=== PATIENT | female | born 1945 | race Caucasian/White ===

== ENCOUNTER → 2017-02-18 | Outpatient (CLI) | payer MEDICARE, OTHER ==
--- NOTE | 2017-02-19 12:17 | RADRPT ---
PROCEDURE: XR Knees. CLINICAL INDICATION: Bilateral knee pain. TECHNIQUE: Total of eight views. Weightbearing frontal, oblique, and lateral views of the both kn ees. Patellar views of both knees. COMPARISON: Left knee radiographs dated 02/16/2014. FINDINGS: There is no fracture or dislocation. The soft tissues are normal. There are degenerative changes with osteophytes arising from all 3 joint compartment margins bilater ally. There is bilateral medial joint compartment narrowing, subarticular sclerosis, and deformity with left worse than right. There is no lytic or blastic lesion. There is no radiopaque foreign body. IMPRESSION: 1. Severe degenerative changes of both knees with left worse than right. 2. The appearance of the left knee is slightly worse than 02/26/2014. RPTAT: QQ .Edil Cortes MD, MD Date Time Electronically viewed and signed by .Edil Cortes MD, MD on 02/19/2017 12:16 .R/
== END | disposition home or self-care (01) ==
LOC: HKI 14:01
PROVIDERS: ATTEND Orthopaedic Surgery
DX: M25.562 Pain in left knee (principal); M17.0 Bilateral primary osteoarthritis of knee
CPT/HCPCS: 73564; G0463

== ENCOUNTER → 2017-04-12 | Outpatient (CLI) | payer MEDICARE, OTHER ==
--- NOTE | 2017-04-12 12:40 | RADRPT ---
PROCEDURE: Limited x-ray of both lower extremities. CLINICAL INDICATION: Bilateral leg pain. TECHNIQUE: Single frontal view of both lower extremities was obtained from the hips to the calves. COMPARISON: 03/29/2014. FINDINGS: There are degenerative changes of the hips with osteophytes noted. There are moderate degenerative changes of both knees with joint compartment narrowing and osteophytes. IMPRESSION: 1. Mild degenerative changes of the hips. 2. Moderate degenerative changes of the knees. RPTAT: QQ .Edil Cortes MD, MD Date Time Electronically viewed and signed by .Edil Cortes MD, on 04/12/2017 12:39 .R/
== END | disposition home or self-care (01) ==
LOC: HKI 10:15
PROVIDERS: ATTEND Orthopaedic Surgery
DX: Z01.818 Encounter for other preprocedural examination (principal); M17.4 Other bilateral secondary osteoarthritis of knee; M16.0 Bilateral primary osteoarthritis of hip
CPT/HCPCS: 77073

== ENCOUNTER 2017-04-23 06:57 | Inpatient (IN) | payer MEDICARE, OTHER ==
[~2017-04-23] VITALS: Ht 166.4 cm; Wt 59.2 kg
[2017-04-23] VITALS (39 sets, daily range): BP systolic 103–154; BP diastolic 57–83; PULSE 66–76; RESP 11–29; Ht 166.4 cm; Wt 59.2 kg
[2017-04-23] MEDS ORDERED: CEFAZOLIN 2GM/50 ML (PMX) 50 ML X1 BEFORE INCISION IVPB ONE (07:00)
[2017-04-23] MEDS ORDERED: CEFAZOLIN 1 GM INJ ONE (07:00)
[2017-04-23] MEDS ORDERED: PAIN COCKTAIL-CEFUROXIME IRR ONE ×7 (07:00)
[2017-04-23] MEDS ORDERED: traMADOL 50 MG TAB X 1 DOSE PO ONE (07:00)
[2017-04-23] MEDS ORDERED: oxyCODONE (CR) 10 MG TAB [oxyCONTIN] X1 DOSE PO ONE (07:00)
[2017-04-23] MEDS ORDERED: PREGABALIN 300 MG PO X1 PO ONE (07:00)
[2017-04-23] MEDS ORDERED: CELECOXIB 400 MG PO X1 DOSE PO ONE (07:00)
[2017-04-23] MEDS ORDERED: TRANEXAMIC ACID in SOD CHLORIDE 0.9% 100 ML ON CALL TO OR IV ONE (07:00)
[2017-04-23] MEDS ORDERED: LACTATED RINGER'S 1,000 ML IV SCH ×2 (07:00→12:12)
[2017-04-23] MEDS ORDERED: TRANEXAMIC ACID in SOD CHLORIDE 0.9% 100 ML FOR INTRAOP IVPB ONE (07:00)
[2017-04-23] MEDS ORDERED: LIOT5TAB3 PO (07:50)
[2017-04-23] MEDS ORDERED: TRAZ50TA18 PO (07:51)
[2017-04-23] MEDS ORDERED: LEVO100T87 PO (07:51)
[2017-04-23] MEDS ORDERED: DULO60CA6 PO (07:52)
[2017-04-23] MEDS ORDERED: DOCU-144 PO (07:53)
[2017-04-23] MEDS ORDERED: POLY17PO6 PO (07:53)
[2017-04-23] MEDS ORDERED: CARV6.2579 PO (07:54)
[2017-04-23] MEDS ORDERED: ATOR10TA65 PO (07:54)
[2017-04-23] MEDS ORDERED: MULTI PO (07:55)
[2017-04-23] MEDS ORDERED: OXCA300T41 PO (07:55)
[2017-04-23] MEDS ORDERED: ASCO500C7 PO (07:55)
[2017-04-23] MEDS ORDERED: CITRACAL PO (07:56)
[2017-04-23] MEDS ORDERED: CHOL100062 PO (07:57)
[2017-04-23] MEDS ORDERED: BACITRACIN 50000 UNITS INJ ONE (08:20)
[2017-04-23] MEDS ORDERED: POLYMYXIN B 500000 UNIT INJ ONE (08:59)
[2017-04-23] MEDS ORDERED: SODIUM CL BACTERIOSTATIC 30 ML INJ ONE (08:59)
[2017-04-23] MEDS ORDERED: EXPAREL NOTE (BUPIVICAINE LIPOSOMAL) XX SCH (09:00)
[2017-04-23] MEDS ORDERED: BUPIVACAINE LIPOSOME/PF 266 MG/20 ML VIAL INFIL ONE (09:00)
--- NOTE | 2017-04-23 09:35 | HPN ---
Date/Time of Note Date/Time of Note DATE: 04/23/17 TIME: 09:34 Interval H&P Admission Note Pt. seen H&P reviewed: No system changes No changes from H&P on 04/09/17 by FLORES Larsen MD Apr 23, 2017 09:34
[2017-04-23] MEDS ORDERED: LIDOCAINE 2% (SDV) 5 ML INJ ONE (10:05)
[2017-04-23] MEDS ORDERED: PROPOFOL 100 ML ONE (10:05)
[2017-04-23] MEDS ORDERED: FENTAnyl 50 MCG/ML VIAL ONE (10:06)
[2017-04-23] MEDS ORDERED: MIDAZOLAM 1 MG/ML 2 ML INJ ONE (10:06)
[2017-04-23] MEDS ORDERED: DEXAMETHASONE 4 MG/ML 1 ML INJ ONE (10:49)
[2017-04-23] MEDS ORDERED: FAMOTIDINE 20 MG INJ ONE (10:49)
[2017-04-23] MEDS ORDERED: ONDANSETRON 4 MG INJ ONE (10:49)
[2017-04-23] MEDS: VANCOMYCIN 1 GM INJ ONE ×2 (10:50→10:52)
[2017-04-23] MEDS ORDERED: EPHEDrine SULFATE 50 MG/5 ML SYG ONE (12:00)
[2017-04-23] MEDS ORDERED: HYDROmorphONE (0.2 MG/ML) 10ML SYG IV PRN ×2 (12:00→12:30)
[2017-04-23] MEDS ORDERED: DIPHENHYDRAMINE 50 MG INJ IV PRN (12:00)
[2017-04-23] MEDS ORDERED: ONDANSETRON 4 MG INJ IV PRN ×2 (12:00→12:30)
[2017-04-23] MEDS ORDERED: FENTAnyl 50 MCG/ML VIAL IV PRN (12:00)
--- NOTE | 2017-04-23 12:23 | PN ---
Date/Time of Note Date/Time of Note DATE: 04/23/17 TIME: 12:20 Assessment/Plan Lines/Catheters IV Catheter Type (from Nrsg): Peripheral IV Assessment/Plan Assessment/Plan Stable in PACU, s/p left TKA -continue Ancef -pain meds as needed -ASA/SCDs -OOB with PT -check AM labs -monitor drain -d/c olivas in AM XR of the left knee is pending at this time Subjective 24 Hr Interval Summary Stable in PACU. Denies pain. Moving all extremities. Exam/Review of Systems Vital Signs Vitals Vital Signs Date Time Temp Pulse Resp B/P Pulse Ox O2 Delivery O2 Flow Rate FiO2 04/23/17 08:48 97.6 72 18 103/57 98 Room Air Exam Free Text/Dictation Hemovac: minimal Dressing dry Incision clean, dry, and intact without redness or drainage Thigh soft 5/5 Quadriceps, Tibialis Anterior, EHL, Gastroc, Soleus, Peroneals Normal sensation Palpable DT/PT, CR <2 sec No distal edema ANN-MARIE RIVAS PA-C Apr 23, 2017 12:23
--- NOTE | 2017-04-23 12:24 | OPR ---
Date/Time of Note Date/Time of Note DATE: 04/23/17 TIME: 12:19 Operative Report Free Text/Dictation Dictation #[id number] Preoperative Diagnosis Left Knee OA Postoperative Diagnosis Same Operation/Procedure Performed Left TKA Surgeon: FLORES LORENZ MD assistant technician: ANN-MARIE RIVAS PA-C Anesthesia: general, spinal Estimated Blood Loss: 50 - 100 ml's Specimens Bone and soft tissue Grafts/Implants Depuy Attune TKA Complications: None FLORES LORENZ MD Apr 23, 2017 12:24
[2017-04-23] MEDS ORDERED: BISACODYL 10 MG SUPP PR PRN (12:30)
[2017-04-23] MEDS ORDERED: MAGNESIUM HYDROXIDE 30ML CUP PO PRN (12:30)
[2017-04-23] MEDS ORDERED: NA PHOSPHATE/BIPHOS 133 ML ENEMA PR PRN (12:30)
[2017-04-23] MEDS ORDERED: NACL 0.9% 3 ML SYG IV SCH (12:30)
[2017-04-23] MEDS ORDERED: DIPHENHYDRAMINE 25 MG CAP PO PRN (12:30)
[2017-04-23] MEDS ORDERED: ASPIRIN (EC) 325 MG TAB PO ONE (12:30)
[2017-04-23 13:21] LABS: HEMATOCRIT 39.4 % (37.0-47.0); HEMOGLOBIN 13.1 g/dl (12.0-16.0)
[2017-04-23] MEDS: CEFAZOLIN 2 GM/50 ML (PMX) 50 ML IVPB SCH ×2 (13:29→20:51)
[2017-04-23 13:40] LABS: CALCIUM 8.3 mg/dl (8.4-10.2); CREATININE 0.7 mg/dl (0.44-1.00)
--- NOTE | 2017-04-23 13:56 | RADRPT ---
PROCEDURE: XR Knee. CLINICAL INDICATION: Left knee pain TECHNIQUE: 2 views of the left knee are available for review. COMPARISON: Radiographs of the left knee dated February 18, 2017 FINDINGS: There is a total left knee arthroplasty in anatomic alignment. There is no acute fracture. There is anterior soft tissue swelling and gas with anterior vonnie. There is an anterior drain. IMPRESSION: Recent total left knee arthroplasty as above. RPTAT: UU .Michel Wellington MD, MD Date Time Electronically viewed and signed by .Michel Wellington MD, MD on 04/23/2017 13:56 .K/
[2017-04-23] MEDS ORDERED: TRANEXAMIC ACID 590 MG in SOD CHLORIDE 0.9% 100 ML IVPB ONE ×2 (15:30→18:30)
[2017-04-23] MEDS: HYDROCODONE/APAP (7.5/325) TAB PO PRN ×2 (16:57→23:50)
[2017-04-23] MEDS: PANTOPRAZOLE (EC) 40 MG TAB PO SCH (17:52)
[2017-04-23] MEDS: traMADol 50 MG TAB PO SCH ×2 (17:52→23:22)
[2017-04-23] MEDS: SOD CHLORIDE 0.9% 1,000 ML IV SCH (17:53)
[2017-04-23] MEDS: HYDROmorphONE 1 MG/ML SYG IV PRN (19:01)
[2017-04-23] MEDS: PREGABALIN 50 MG CAP PO SCH (20:51)
[2017-04-23] MEDS: ATORVASTATIN 10 MG TAB PO SCH (20:51)
[2017-04-23] MEDS: DOCUSATE SODIUM 100 MG CAP PO SCH (20:51)
[2017-04-23] MEDS: OXCARBAZEPINE 300 MG TAB PO SCH (21:31)
[2017-04-24] MEDS: HYDROmorphONE 1 MG/ML SYG IV PRN ×4 (01:34→16:25)
[2017-04-24] MEDS: SOD CHLORIDE 0.9% 1,000 ML IV SCH ×2 (02:03→11:01)
[2017-04-24] MEDS: HYDROCODONE/APAP (7.5/325) TAB PO PRN ×4 (04:07→19:36)
[2017-04-24] MEDS: CEFAZOLIN 2 GM/50 ML (PMX) 50 ML IVPB SCH (04:10)
[2017-04-24 05:36] LABS: HEMATOCRIT 32.3 % (37.0-47.0); HEMOGLOBIN 10.6 g/dl (12.0-16.0)
[2017-04-24] MEDS: PANTOPRAZOLE (EC) 40 MG TAB PO SCH ×2 (06:16→19:21)
[2017-04-24] MEDS: traMADol 50 MG TAB PO SCH ×3 (06:17→19:21)
[2017-04-24 06:26] LABS: CALCIUM 7.5 mg/dl (8.4-10.2); CREATININE 0.71 mg/dl (0.44-1.00); POTASSIUM 3.9 mmol/L (3.5-5.1)
[2017-04-24] MEDS: LEVOTHYROXINE 100 MCG TAB PO SCH (06:39)
[2017-04-24 07:00] VITALS: BP 93/63; RESP 18
[2017-04-24 07:56] LABS: ADD UMIC YES; UR ASCORBIC ACID NEGATIVE (NEGATIVE); UR BILIRUBIN (Dip) NEGATIVE (NEGATIVE); UR BLOOD (Dip) 1+ mg/dL (NEGATIVE); UR CLARITY CLEAR (CLEAR); UR COLOR YELLOW (YELLOW); UR GLUCOSE (Dip) NEGATIVE (NEGATIVE); UR KETONES (Dip) NEGATIVE (NEGATIVE); UR LEUKOCYTE ESTERASE (Dip) NEGATIVE Leu/ul (NEGATIVE); UR MUCUS FEW /HPF (NONE SEEN); UR NITRITE (Dip) NEGATIVE (NEGATIVE); UR RBC 35 /HPF (0-5); UR SPECIFIC GRAVITY (Dip) 1.033 (1.003-1.030); UR TOTAL PROTEIN (Dip) 1+ mg/dl (NEGATIVE); UR UROBILINOGEN (Dip) NEGATIVE (NEGATIVE)
--- NOTE | 2017-04-24 08:42 | CONS ---
Date/Time of Note Date/Time of Note DATE: 04/24/17 TIME: 08:40 Assessment/Plan Assessment/Plan Additional Assessment/Plan 1. Post op left knee replacement 2. Hyponatremia likley sec to siadh with trileptal contrib, fluid restriction ordered and Monika 3. Depression, meds resumed Consultation Date/Type/Reason Admit Date/Time Apr 23, 2017 at 06:57 Initial Consult Date Detailed Summary Respiratory: No shortness of breath Cardiovascular: No chest pain, No orthopenea Gastrointestinal: no complaints Genitourinary: no complaints Musculoskeletal: bone/joint pain (mild left knee pain) Exam/Review of Systems Vital Signs Vitals Vital Signs Date Time Temp Pulse Resp B/P Pulse Ox O2 Delivery O2 Flow Rate FiO2 04/24/17 07:00 97.9 80 18 93/63 96 04/23/17 20:00 Nasal Cannula 2.0 Intake and Output 04/23/17 04/23/17 04/24/17 15:00 23:00 07:00 Intake Total 1800 ml 741.8 ml 1580 ml Output Total 400 ml 620 ml 700 ml Balance 1400 ml 121.8 ml 880 ml Exam Neck: No jvd Respiratory: clear to auscultation Cardiovascular: regular rate and rhythm Gastrointestinal: soft Extremities: No edema, No tenderness Results Result Diagram: 04/24/17 0500 04/24/17 0500 Results 24 hrs Laboratory Tests Test 04/23/17 13:02 04/23/17 13:06 04/23/17 18:05 04/24/17 05:00 Sodium Level 128 L 123 L Potassium Level 4.0 3.9 Chloride Level 98 92 L Carbon Dioxide Level 30 30 Anion Gap 4 L 5 L Blood Urea Nitrogen 20 16 Creatinine 0.70 0.71 Glucose Level 107 94 Calcium Level 8.3 L 7.5 L Hemoglobin 13.1 10.6 L Hematocrit 39.4 32.3 L Urine Random Sodium > 198 H Test 04/24/17 06:30 Urine Color YELLOW Urine Clarity CLEAR Urine pH 5.0 Urine Specific Nunda 1.033 H Urine Ketones NEGATIVE Urine Nitrite NEGATIVE Urine Bilirubin NEGATIVE Urine Urobilinogen NEGATIVE Urine Leukocyte Esterase NEGATIVE Urine Microscopic RBC 35 H Urine Microscopic WBC 3 Urine Mucus FEW A Urine Hemoglobin 1+ H Urine Glucose NEGATIVE Urine Total Protein 1+ H Medications Medications Current Medications Miscellaneous Information 1 ea NOTE XX ; Start 04/23/17 at 09:00; Stop 04/27/17 at 08:59 Ascorbic Acid (Vitamin C) 500 mg DAILY PO ; Start 04/24/17 at 09:00 Atorvastatin Calcium (Lipitor) 10 mg QHS PO Last administered on 04/23/17 20: 51; Admin Dose 10 MG; Start 04/23/17 at 21:00 Carvedilol (Coreg) 6.25 mg BID PO Last administered on 04/23/17 20:53; Admin Dose 6.25 MG; Start 04/23/17 at 21:00 Duloxetine HCl (Cymbalta) 60 mg DAILY PO ; Start 04/24/17 at 09:00 Liothyronine Sodium (Cytomel) 5 mcg DAILY PO ; Start 04/24/17 at 09:00 Oxcarbazepine (Trileptal) 900 mg BID PO Last administered on 04/23/17 21:31; Admin Dose 900 MG; Start 04/23/17 at 21:00 Tramadol HCl (Ultram) 50 mg Q6 PO Last administered on 04/24/17 06:17; Admin Dose 50 MG; Start 04/23/17 at 18:00; Stop 04/26/17 at 17:59 Hydromorphone HCl (Dilaudid) 1 mg Q3H PRN IV PAIN LEVEL 8-10 Last administered on 04/24/17 06:39; Admin Dose 1 MG; Start 04/23/17 at 12:30 Ondansetron HCl (Zofran Inj) 4 mg Q6H PRN IV NAUSEA AND/OR VOMITING; Start 08/30 at 12:30 Bisacodyl (Dulcolax Supp) 10 mg Q12H PRN [place] CONSTIPATION; Start 04/23/17 at 12: 30 Magnesium Hydroxide (Milk Of Mag) 30 ml BID PRN PO CONSTIPATION; Start at 12:30 Sodium Biphosphate/ Sodium Phosphate (Fleet Enema) 133 ml DAILY PRN [place] CONSTIPATION; Start 04/23/17 at 12:30 Docusate Sodium (Colace) 100 mg BID PO Last administered on 04/23/17 20:51; Admin Dose 100 MG; Start 04/23/17 at 21:00 Diphenhydramine HCl (Benadryl) 25 mg Q6H PRN PO PRURITUS; Start 04/23/17 at 12: 30 Acetaminophen/ Hydrocodone Bitart ([place] (7.5-325)) 1 tab Q4H PRN PO PAIN LEVEL 1-3 Last administered on 04/23/17 16:57; Admin Dose 1 TAB; Start at 12:30 Acetaminophen/ Hydrocodone Bitart ([place] (7.5-325)) 2 tab Q4H PRN PO PAIN LEVEL 4-7 Last administered on 04/24/17 04:07; Admin Dose 2 TAB; Start at 12:30 Aspirin (Ecotrin) 325 mg BID PO ; Start 04/24/17 at 09:00 Pantoprazole (Protonix Tab) 40 mg BID@06,18 PO Last administered on 04/24/17 06:16; Admin Dose 40 MG; Start 04/23/17 at 18:00 Pregabalin 50 mg 50 mg BID PO Last administered on 04/23/17 20:51; Admin Dose 50 MG; Start 04/23/17 at 21:00 Sodium Chloride (NS) 1,000 ml @ 125 mls/hr Q8H IV Last administered on 02:03; Admin Dose 125 MLS/HR; Start 04/23/17 at 17:30 VAHE KEYES MD Apr 24, 2017 08:42
[2017-04-24] MEDS: PREGABALIN 50 MG CAP PO SCH ×2 (09:00→20:47)
--- NOTE | 2017-04-24 09:03 | PN ---
Date/Time of Note Date/Time of Note DATE: 04/24/17 TIME: 09:01 Assessment/Plan Lines/Catheters IV Catheter Type (from Nrsg): Peripheral IV Cook in Place (from Nrsg): Yes Assessment/Plan Assessment/Plan Stable POD #1, s/p left TKA -d/c Ancef -pain meds as needed -ASA/SCDs -OOB with PT -drain removed -check AM labs -d/c planning. Will plan to go home upon discharge Subjective 24 Hr Interval Summary No acute overnight events. Having mild knee pain and discomfort to her throat. VSS, afebrile. Did not start PT yesterday. Will plan to go home upon discharge. Exam/Review of Systems Vital Signs Vitals Vital Signs Date Time Temp Pulse Resp B/P Pulse Ox O2 Delivery O2 Flow Rate FiO2 04/24/17 07:00 97.9 80 18 93/63 96 04/23/17 20:00 Nasal Cannula 2.0 Intake and Output 04/23/17 04/23/17 04/24/17 15:00 23:00 07:00 Intake Total 1800 ml 741.8 ml 1580 ml Output Total 400 ml 620 ml 700 ml Balance 1400 ml 121.8 ml 880 ml Exam Free Text/Dictation Hemovac: 280cc Dressing dry Incision clean, dry, and intact without redness or drainage Thigh soft 5/5 Quadriceps, Tibialis Anterior, EHL, Gastroc, Soleus, Peroneals Normal sensation Palpable DT/PT, CR <2 sec No distal edema Results Result Diagram: 04/24/17 0500 04/24/17 0500 ANN-MARIE RIVAS PA-C Apr 24, 2017 09:02
[2017-04-24] MEDS: DULOXETINE 30 MG CAP DR PO SCH (09:21)
[2017-04-24] MEDS: OXCARBAZEPINE 300 MG TAB PO SCH ×2 (09:22→20:46)
[2017-04-24] MEDS: DOCUSATE SODIUM 100 MG CAP PO SCH ×2 (09:22→20:48)
[2017-04-24] MEDS: ASPIRIN (EC) 325 MG TAB PO SCH ×2 (09:23→20:47)
[2017-04-24] MEDS: ASCORBIC ACID 500 MG TAB PO SCH (09:23)
[2017-04-24] MEDS: LIOTHYRONINE 5 MCG TAB PO SCH (09:28)
[2017-04-24] MEDS ORDERED: CEPASTAT LOZENGE MT PRN (09:30)
[2017-04-24] MEDS: NACL 3% 500 ML IV SCH (16:25)
[2017-04-24 20:00] VITALS: BP 123/58; RESP 18
[2017-04-24] MEDS: ATORVASTATIN 10 MG TAB PO SCH (20:47)
[2017-04-24] MEDS: ZOLPIDEM 5 MG TAB PO PRN (22:55)
[2017-04-25] VITALS (10 sets, daily range): BP systolic 103–123; BP diastolic 53–75; PULSE 78–90; RESP 18–21
[2017-04-25] MEDS: HYDROCODONE/APAP (7.5/325) TAB PO PRN ×3 (02:34→20:24)
[2017-04-25] MEDS: PANTOPRAZOLE (EC) 40 MG TAB PO SCH ×2 (05:47→10:26)
[2017-04-25] MEDS: traMADol 50 MG TAB PO SCH ×4 (05:48→18:00)
[2017-04-25] MEDS: LEVOTHYROXINE 100 MCG TAB PO SCH (05:48)
[2017-04-25 07:45] LABS: CREATININE 0.67 mg/dl (0.44-1.00); POTASSIUM 4.7 mmol/L (3.5-5.1)
--- NOTE | 2017-04-25 07:47 | CONS ---
Date/Time of Note Date/Time of Note DATE: 04/25/17 TIME: 07:44 Assessment/Plan Assessment/Plan Additional Assessment/Plan 1. Doing well post op left knee replacement 2. Hyponatremia sec to siadh, now receivng 3% saline, trileptal and cymbalta is contributing. Consultation Date/Type/Reason Admit Date/Time Apr 23, 2017 at 06:57 Detailed Summary Respiratory: pain, No cough, No shortness of breath Cardiovascular: No chest pain Gastrointestinal: no complaints Genitourinary: no complaints Musculoskeletal: bone/joint pain (mild left knee pain) Exam/Review of Systems Vital Signs Vitals Vital Signs Date Time Temp Pulse Resp B/P Pulse Ox O2 Delivery O2 Flow Rate FiO2 04/25/17 07:22 98.0 82 18 123/58 95 04/25/17 02:45 Nasal Cannula 2.0 Intake and Output 04/24/17 04/24/17 04/25/17 15:00 23:00 07:00 Intake Total 740 ml 200 ml Output Total 600 ml Balance 140 ml 200 ml Exam Neck: No jvd Respiratory: clear to auscultation Cardiovascular: regular rate and rhythm Gastrointestinal: soft Extremities: edema (and no calf tend) Results Result Diagram: 04/25/17 0639 04/24/17 2228 Results 24 hrs Laboratory Tests Test 04/24/17 12:45 04/24/17 22:28 04/25/17 06:39 Sodium Level 120 L 119 *L Hemoglobin 11.0 L Hematocrit 34.0 L Medications Medications Current Medications Miscellaneous Information 1 ea NOTE XX ; Start 04/23/17 at 09:00; Stop 04/27/17 at 08:59 Ascorbic Acid (Vitamin C) 500 mg DAILY PO Last administered on 04/24/17 09:23 ; Admin Dose 500 MG; Start 04/24/17 at 09:00 Atorvastatin Calcium (Lipitor) 10 mg QHS PO Last administered on 04/24/17 20: 47; Admin Dose 10 MG; Start 04/23/17 at 21:00 Carvedilol (Coreg) 6.25 mg BID PO Last administered on 04/24/17 20:48; Admin Dose 6.25 MG; Start 04/23/17 at 21:00 Duloxetine HCl (Cymbalta) 60 mg DAILY PO Last administered on 04/24/17 09:21; Admin Dose 60 MG; Start 04/24/17 at 09:00 Liothyronine Sodium (Cytomel) 5 mcg DAILY PO Last administered on 04/24/17 09: 28; Admin Dose 5 MCG; Start 04/24/17 at 09:00 Oxcarbazepine (Trileptal) 900 mg BID PO Last administered on 04/24/17 20:46; Admin Dose 900 MG; Start 04/23/17 at 21:00 Tramadol HCl (Ultram) 50 mg Q6 PO Last administered on 04/25/17 05:48; Admin Dose 50 MG; Start 04/23/17 at 18:00; Stop 04/26/17 at 17:59 Hydromorphone HCl (Dilaudid) 1 mg Q3H PRN IV PAIN LEVEL 8-10 Last administered on 04/24/17 16:25; Admin Dose 1 MG; Start 04/23/17 at 12:30 Ondansetron HCl (Zofran Inj) 4 mg Q6H PRN IV NAUSEA AND/OR VOMITING; Start 08/30 at 12:30 Bisacodyl (Dulcolax Supp) 10 mg Q12H PRN [place] CONSTIPATION; Start 04/23/17 at 12: 30 Magnesium Hydroxide (Milk Of Mag) 30 ml BID PRN PO CONSTIPATION; Start at 12:30 Sodium Biphosphate/ Sodium Phosphate (Fleet Enema) 133 ml DAILY PRN [place] CONSTIPATION; Start 04/23/17 at 12:30 Docusate Sodium (Colace) 100 mg BID PO Last administered on 04/24/17 20:48; Admin Dose 100 MG; Start 04/23/17 at 21:00 Diphenhydramine HCl (Benadryl) 25 mg Q6H PRN PO PRURITUS; Start 04/23/17 at 12: 30 Acetaminophen/ Hydrocodone Bitart ([place] (7.5-325)) 1 tab Q4H PRN PO PAIN LEVEL 1-3 Last administered on 04/25/17 02:34; Admin Dose 1 TAB; Start at 12:30 Acetaminophen/ Hydrocodone Bitart ([place] (7.5-325)) 2 tab Q4H PRN PO PAIN LEVEL 4-7 Last administered on 04/24/17 14:15; Admin Dose 2 TAB; Start at 12:30 Aspirin (Ecotrin) 325 mg BID PO Last administered on 04/24/17 20:47; Admin Dose 325 MG; Start 04/24/17 at 09:00 Pantoprazole (Protonix Tab) 40 mg BID@06,18 PO Last administered on 04/25/17 05:47; Admin Dose 40 MG; Start 04/23/17 at 18:00 Pregabalin (Lyrica) 50 mg BID PO Last administered on 04/24/17 20:47; Admin Dose 50 MG; Start 04/23/17 at 21:00 Phenol 1 lozenge 1 lozenge Q1H PRN [place] SORE THROAT Last administered on 09:28; Admin Dose 1 LOZENGE; Start 04/24/17 at 09:30 Sodium Chloride (Sodium Chloride Iv 3%) 500 ml @ 30 mls/hr [id number] IV Last administered on 04/24/17 16:25; Admin Dose 20 MLS/HR; Start 04/24/17 at 16:00 Zolpidem Tartrate (Ambien) 5 mg HS PRN PO INSOMNIA Last administered on 22:55; Admin Dose 5 MG; Start 04/24/17 at 23:00 VAHE KEYES MD Apr 25, 2017 07:47
[2017-04-25 07:50] LABS: MAGNESIUM 1.6 mg/dl (1.7-2.5)
[2017-04-25] MEDS: DULOXETINE 30 MG CAP DR PO SCH (10:25)
[2017-04-25] MEDS: OXCARBAZEPINE 300 MG TAB PO SCH ×2 (10:26→20:20)
[2017-04-25] MEDS: PREGABALIN 50 MG CAP PO SCH ×2 (10:26→20:20)
[2017-04-25] MEDS: DOCUSATE SODIUM 100 MG CAP PO SCH ×2 (10:26→20:21)
[2017-04-25] MEDS: ASPIRIN (EC) 325 MG TAB PO SCH ×2 (10:26→20:20)
[2017-04-25] MEDS: LIOTHYRONINE 5 MCG TAB PO SCH (10:26)
[2017-04-25] MEDS: ASCORBIC ACID 500 MG TAB PO SCH (10:27)
[2017-04-25] MEDS ORDERED: MAGNESIUM SULFATE 3 GM in SOD CHLORIDE 0.9% 100 ML IVPB ONE (12:30)
--- NOTE | 2017-04-25 13:19 | RADRPT ---
PROCEDURE: Left knee x-ray CLINICAL INDICATION: "Knee pain, fell." TECHNIQUE: AP, lateral and oblique views of the knee were obtained. COMPARISON: Left knees 04/22/2017. FINDINGS: There are skin vonnie over the ventral surface of the left knee with subcutaneous emphysema ventral to the patellar ligament. The femoral and tibial and patellar components of the left knee prosthes is are anatomically aligned. A trace effusion is not excluded. IMPRESSION: 1. Postsurgical changes from recent total left knee arthroplasty. 2. No acute bony fracture is identified. RPTAT:AAJJ Physician Xochitl Date Time Electronically viewed and signed by Physician Xochitl on 04/25/2017 13:18 NICOLE/
--- NOTE | 2017-04-25 15:37 | PN ---
Date/Time of Note Date/Time of Note DATE: 04/25/17 TIME: 15:35 Assessment/Plan Lines/Catheters IV Catheter Type (from Nrsg): Peripheral IV Cook in Place (from Nrsg): No Assessment/Plan Assessment/Plan POD #2, s/p left TKA -pain meds as needed -ASA/SCDs -OOB with PT -sodium improved today. Will continue to be monitored by medicine team -check AM labs -dressing changed Subjective 24 Hr Interval Summary Transferred to due to hyponatremia last night. Denies CP or SOB. Also had episode of confusion today and had a fall in her room. XR of the left knee was ordered and showed no fracture or dislocations. Pain controlled with pain medication. VSS, afebrile. Exam/Review of Systems Vital Signs Vitals Vital Signs Date Time Temp Pulse Resp B/P Pulse Ox O2 Delivery O2 Flow Rate FiO2 04/25/17 12:14 98.2 78 18 117/75 92 04/25/17 02:45 Nasal Cannula 2.0 Intake and Output 04/24/17 04/24/17 04/25/17 15:00 23:00 07:00 Intake Total 740 ml 200 ml Output Total 600 ml Balance 140 ml 200 ml Exam Free Text/Dictation Dressing dry Incision clean, dry, and intact without redness or drainage Thigh soft 5/5 Quadriceps, Tibialis Anterior, EHL, Gastroc, Soleus, Peroneals Normal sensation Palpable DT/PT, CR <2 sec No distal edema Results Result Diagram: 04/25/17 0639 04/25/17 0639 ANN-MARIE RIVAS PA-C Apr 25, 2017 15:37
[2017-04-25] MEDS: NACL 3% 500 ML IV SCH (15:44)
--- NOTE | 2017-04-25 17:49 | RADRPT ---
PROCEDURE: CT Head without. CLINICAL INDICATION: Headaches status post fall TECHNIQUE: The study was performed utilizing a multi-slice, multidetector CT scanner. Direct spira l 1 mm axial sections were obtained through the head without the use of intravenous contrast materia l. 1 or more of the following dose reduction techniques were utilized: Automated exposure control, adjustment of the mA and/or kV according to patient's size, iterative reconstruction technique. Co tee and sagittal reformations were obtained. The images were reviewed on a PACS workstation. RADIATION DOSE: CTDIvol: 45.0 mGyDLP: 720.2 mGy-cm COMPARISON: No prior studies are available for comparison. FINDINGS: There is no intracranial hemorrhage, extra-axial fluid collection, mass lesion, midline shift or hyd rocephalus. There is mild prominence of the cerebral sulci, lateral and third ventricles. There is mild periventricular and subcortical white matter hypodensity. There is mild arteriosclerotic calc ification of the parasellar internal carotid arteries. The mata-white matter differentiation is pre served. The basal cisterns are patent. The midline structures are intact. There is pneumatization of the bilateral petrous apices without evidence of inflammatory changes, normal variant. The orbit s, calvarium and extracranial soft tissues are normal in appearance. The visualized paranasal sinuse s, mastoid air cells and middle ear cavities are normally aerated. IMPRESSION: 1. No acute intracranial abnormality. No intracranial hemorrhage, extra-axial fluid collection, ma ss lesion or hydrocephalous. 2. Mild peripheral and central cerebral volume loss. 3. Mild periventricular and subcortical white matter hypodensity, likely related to chronic microan giopathic changes. RPTAT: HGAS .Dariusz Donohue MD, MD Date Time Electronically viewed and signed by .Dariusz Donohue MD, on 04/25/2017 17:48 .S/
[2017-04-25] MEDS: ATORVASTATIN 10 MG TAB PO SCH (20:20)
[2017-04-25] MEDS ORDERED: FUROSEMIDE 20 MG INJ IV ONE (23:00)
[2017-04-26] VITALS (9 sets, daily range): BP systolic 114–131; BP diastolic 56–82; PULSE 89–96; RESP 17–19
[2017-04-26] MEDS: traMADol 50 MG TAB PO SCH ×3 (05:43→12:00)
[2017-04-26] MEDS: PANTOPRAZOLE (EC) 40 MG TAB PO SCH ×2 (05:43→18:11)
[2017-04-26 07:03] LABS: ADD SCAN DIFF NO
[2017-04-26 07:18] LABS: BASOPHILS % 0.3 % (0.0-2.0); EOSINOPHILS # 0.1 10^3/ul (0.0-0.5); EOSINOPHILS % 0.9 % (0.0-7.0); HEMATOCRIT 29.8 % (37.0-47.0); HEMOGLOBIN 9.9 g/dl (12.0-16.0); LYMPHOCYTES # 0.8 10^3/ul (0.8-2.9); LYMPHOCYTES % 9.1 % (15.0-51.0); MEAN CORPUSCULAR HEMOGLOBIN 30.7 pg (29.0-33.0); MEAN CORPUSCULAR HGB CONC 33.2 g/dl (32.0-37.0); MEAN CORPUSCULAR VOLUME 92.5 fl (82.0-101.0); MEAN PLATELET VOLUME 9.5 fl (7.4-10.4); MONOCYTES % 11.2 % (0.0-11.0); NEUTROPHIL # 6.7 10^3/ul (1.6-7.5); NEUTROPHILS % 77.9 % (39.0-77.0); PLATELET COUNT 258 10^3/UL (140-415); RED BLOOD COUNT 3.22 10^6/ul (4.20-5.40); WHITE BLOOD COUNT 8.7 10^3/ul (4.8-10.8)
[2017-04-26 07:44] LABS: CALCIUM 7.6 mg/dl (8.4-10.2); CREATININE 0.67 mg/dl (0.44-1.00); MAGNESIUM 1.8 mg/dl (1.7-2.5); PHOSPHORUS 2.4 mg/dl (2.5-4.9); POTASSIUM 3.5 mmol/L (3.5-5.1)
--- NOTE | 2017-04-26 07:48 | PDOCDIS ---
Discharge Instructions DIAGNOSIS Discharge Diagnosis s/p left TKA CONDITION Patient Condition: Good HOME CARE INSTRUCTIONS: Diet Instructions: Regular ACTIVITY: Activity Restrictions: Slowly Increase Activity Rest between Activity Avoid heavy lifting Do not operate Machinery Do not operate Power Tool Avoid Heavy Housework Keep Limb Elevated Weight Bearing Bathing Restrictions: Shower FOLLOW UP/APPOINTMENTS Follow-up Plan follow up in the office on 05/03/17 REFERRALS Other Referrals S/P TKA Physical Therapy: Three times per week at home x 2 weeks Daily in Rehab/SNF WB STATUS: WBAT 1. Strengthening exercises for both upper and un-operated lower extremities. 2. Gait training with front wheeled walker 3. Active range of motion exercises to operative knee. 4. When not working on knee range of motion exercises, distal towel roll under operative ankle/distal calf to promote full extension. 5. DO NOT PUT ANYTHING BEHIND OPERATIVE KNEE!!! 6. Quadriceps and hamstring strengthening. 7. May switch to cane in contra lateral hand 6 weeks after surgery. 8. Physical Therapy can open case if nursing is not available. 9. Use Ice Machine as instructed from date of surgery while at rest 3X/day. 10. Patient requires mobile SCDs to reduce risk of developing DVT following TKA. Patient will use the mobile SCDs for 30 days postoperatively. Bathing assistance by home health aide twice weekly if Medicare patient. Occupational Therapy: Evaluation for assistive devices and ADL training. Wound Care: Keep incision dry & covered with Tegaderm until first visit with Dr. Figueroa Anticoagulation Orders: Enteric Coated Aspirin 325 mg po bid x 6 weeks from date of surgery Follow-up:Call for an appointment with Dr. Figueroa in 1 week after discharged from hospital at DME Orders: TAJ, 3-in-1 Commode, Polar ice machine, Mobile SCDs ANN-MARIE RIVAS PA-C Apr 26, 2017 07:48
[2017-04-26] MEDS ORDERED: TRAM50TA2 PO (07:49)
[2017-04-26] MEDS ORDERED: PANT40TA4 PO (07:49)
[2017-04-26] MEDS ORDERED: ASPI325T32 PO (07:49)
[2017-04-26] MEDS: LEVOTHYROXINE 100 MCG TAB PO SCH (08:26)
[2017-04-26] MEDS: NACL 3% 500 ML IV SCH (08:26)
[2017-04-26] MEDS: ASCORBIC ACID 500 MG TAB PO SCH (08:27)
[2017-04-26] MEDS: DULOXETINE 30 MG CAP DR PO SCH (08:27)
[2017-04-26] MEDS: LIOTHYRONINE 5 MCG TAB PO SCH (08:27)
[2017-04-26] MEDS: ASPIRIN (EC) 325 MG TAB PO SCH (08:28)
[2017-04-26] MEDS: OXCARBAZEPINE 300 MG TAB PO SCH ×3 (08:28→21:02)
--- NOTE | 2017-04-26 08:28 | CONS ---
Date/Time of Note Date/Time of Note DATE: 04/26/17 TIME: 08:25 Assessment/Plan Assessment/Plan Additional Assessment/Plan 1. S/P left knee replacement. 2. 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 Confusion resolving, CT brain is neg 4. Swell left knee sec to "fall" yesterday, await ortho follow up, nivvs ordered 5. Anemia stable 6. Hypophos noted Consultation Date/Type/Reason Admit Date/Time Apr 23, 2017 at 06:57 Detailed Summary Respiratory: No cough, No shortness of breath Cardiovascular: edema, No chest pain Gastrointestinal: no complaints Musculoskeletal: bone/joint pain (left knee pain and swelling, mod) Exam/Review of Systems Vital Signs Vitals Vital Signs Date Time Temp Pulse Resp B/P Pulse Ox O2 Delivery O2 Flow Rate FiO2 04/26/17 07:38 97.4 97 17 124/60 92 04/25/17 20:30 Nasal Cannula 2.0 Intake and Output 04/25/17 04/25/17 04/26/17 15:00 23:00 07:00 Intake Total 525 ml 110 ml Output Total 800 ml Balance 525 ml -690 ml Exam Neck: No jvd Respiratory: clear to auscultation Cardiovascular: regular rate and rhythm Gastrointestinal: soft Extremities: edema (brawny left lower extrem and sl tend calf) Neurological: other (oreinted to place and time and recent events) Results Result Diagram: 04/26/17 0602 04/26/17 0602 Results 24 hrs Laboratory Tests Test 04/25/17 20:25 04/26/17 06:02 Sodium Level 120 L 128 L White Blood Count 8.7 Red Blood Count 3.22 L Hemoglobin 9.9 L Hematocrit 29.8 L Mean Corpuscular Volume 92.5 Mean Corpuscular Hemoglobin 30.7 Mean Corpuscular Hemoglobin Concent 33.2 Red Cell Distribution Width 13.0 Platelet Count 258 Mean Platelet Volume 9.5 Neutrophils % 77.9 H Lymphocytes % 9.1 L Monocytes % 11.2 H Eosinophils % 0.9 Basophils % 0.3 Nucleated Red Blood Cells % 0.0 Neutrophils # 6.7 Lymphocytes # 0.8 Monocytes # 1.0 H Eosinophils # 0.1 Basophils # 0.0 Nucleated Red Blood Cells # 0.0 Potassium Level 3.5 Chloride Level 96 L Carbon Dioxide Level 29 Anion Gap 7 L Blood Urea Nitrogen 10 Creatinine 0.67 Glucose Level 88 Calcium Level 7.6 L Phosphorus Level 2.4 L Magnesium Level 1.8 Medications Medications Current Medications Miscellaneous Information 1 ea NOTE XX ; Start 04/23/17 at 09:00; Stop 04/27/17 at 08:59 Ascorbic Acid (Vitamin C) 500 mg DAILY PO Last administered on 04/25/17 10:27 ; Admin Dose 500 MG; Start 04/24/17 at 09:00 Atorvastatin Calcium (Lipitor) 10 mg QHS PO Last administered on 04/25/17 20: 20; Admin Dose 10 MG; Start 04/23/17 at 21:00 Carvedilol (Coreg) 6.25 mg BID PO Last administered on 04/25/17 10:27; Admin Dose 6.25 MG; Start 04/23/17 at 21:00 Duloxetine HCl (Cymbalta) 60 mg DAILY PO Last administered on 04/25/17 10:25; Admin Dose 60 MG; Start 04/24/17 at 09:00 Liothyronine Sodium (Cytomel) 5 mcg DAILY PO Last administered on 04/25/17 10: 26; Admin Dose 5 MCG; Start 04/24/17 at 09:00 Oxcarbazepine (Trileptal) 900 mg BID PO Last administered on 04/25/17 20:20; Admin Dose 900 MG; Start 04/23/17 at 21:00 Tramadol HCl (Ultram) 50 mg Q6 PO Last administered on 04/26/17 05:43; Admin Dose 50 MG; Start 04/23/17 at 18:00; Stop 04/26/17 at 17:59 Ondansetron HCl (Zofran Inj) 4 mg Q6H PRN IV NAUSEA AND/OR VOMITING; Start 08/30 at 12:30 Bisacodyl (Dulcolax Supp) 10 mg Q12H PRN [place] CONSTIPATION; Start 04/23/17 at 12: 30 Magnesium Hydroxide (Milk Of Mag) 30 ml BID PRN PO CONSTIPATION; Start at 12:30 Sodium Biphosphate/ Sodium Phosphate (Fleet Enema) 133 ml DAILY PRN [place] CONSTIPATION; Start 04/23/17 at 12:30 Docusate Sodium (Colace) 100 mg BID PO Last administered on 04/25/17 20:21; Admin Dose 100 MG; Start 04/23/17 at 21:00 Diphenhydramine HCl (Benadryl) 25 mg Q6H PRN PO PRURITUS; Start 04/23/17 at 12: 30 Aspirin (Ecotrin) 325 mg BID PO Last administered on 04/25/17 20:20; Admin Dose 325 MG; Start 04/24/17 at 09:00 Pantoprazole (Protonix Tab) 40 mg BID@06,18 PO Last administered on 04/26/17 05:43; Admin Dose 40 MG; Start 04/23/17 at 18:00 Pregabalin (Lyrica) 50 mg BID PO Last administered on 04/25/17 20:20; Admin Dose 50 MG; Start 04/23/17 at 21:00 Phenol 1 lozenge 1 lozenge Q1H PRN [place] SORE THROAT Last administered on 09:28; Admin Dose 1 LOZENGE; Start 04/24/17 at 09:30 Sodium Chloride (Sodium Chloride Iv 3%) 500 ml @ 20 mls/hr Q24H IV Last administered on 04/25/17 15:44; Admin Dose 20 MLS/HR; Start 04/24/17 at 16:00 Zolpidem Tartrate (Ambien) 5 mg HS PRN PO INSOMNIA Last administered on 22:55; Admin Dose 5 MG; Start 04/24/17 at 23:00 VAHE KEYES MD Apr 26, 2017 08:28
[2017-04-26] MEDS ORDERED: MAGNESIUM SULFATE 2 GM/50 ML 50 ML IVPB ONE (08:30)
[2017-04-26] MEDS: PREGABALIN 50 MG CAP PO SCH ×2 (08:30→21:03)
[2017-04-26] MEDS: DOCUSATE SODIUM 100 MG CAP PO SCH ×2 (08:31→21:01)
--- NOTE | 2017-04-26 09:54 | RADRPT ---
PROCEDURE: Ultrasound of the bilateral lower extremity venous system. CLINICAL INDICATION: Bilateral leg pain and swelling, deep venous thrombosis TECHNIQUE: Arce scale with and without compression, color doppler, spectral doppler of the venous system of the bilateral lower extremities was performed. Venous augmentation maneuvers were utilized . COMPARISON: No prior studies are available for comparison. FINDINGS: RIGHT: Common femoral vein: Patent. Femoral vein: Patent. Popliteal vein: Patent. Calf veins: Patent. No soft tissue abnormalities are identified. LEFT: Common femoral vein: Patent. Femoral vein: Patent. Popliteal vein: Focal thrombus is present. Calf veins: Patent. 4.8 cm popliteal cyst is present. IMPRESSION: Focal deep venous thrombosis within the left popliteal vein. 4.8 cm left popliteal cyst. No evidence of right lower extremity deep venous thrombosis. RPTAT: AADD .Iam Ireland MD, Date Time Electronically viewed and signed by .Iam Ireland MD, on 04/26/2017 09:54 .B/
[2017-04-26] MEDS ORDERED: SODIUM PHOSPHATE 30 MMOL in SOD CHLORIDE 0.9% 250 ML IVPB ONE (10:30)
[2017-04-26] MEDS: POTASSIUM CHLORIDE (SR) 10 MEQ TAB PO SCH ×2 (10:56→18:10)
--- NOTE | 2017-04-26 12:19 | PN ---
Date/Time of Note Date/Time of Note DATE: 04/26/17 TIME: 12:16 Assessment/Plan Lines/Catheters IV Catheter Type (from Nrsg): Peripheral IV Cook in Place (from Nrsg): No Assessment/Plan Assessment/Plan POD #3, s/p left TKA with post-operative hyponatremia, improving -pain meds as needed. Use tramadol only for pain -OOB with PT -dressing changed -check AM labs -doppler results pending -stable for transfer to ADDENDUM: doppler of LLE demostrated + DVT of popliteal vein. ASA stopped and switch to Xarelto 15mg q daily. Dr. Figueroa and Dr. Rodriguez aware Subjective 24 Hr Interval Summary No acute overnight events. States feeling much better overall. Sodium improving today. Having left leg swelling, U/S ordered by Dr. Rodriguez. Stable for transfer to today Exam/Review of Systems Vital Signs Vitals Vital Signs Date Time Temp Pulse Resp B/P Pulse Ox O2 Delivery O2 Flow Rate FiO2 04/26/17 12:07 98.7 90 17 114/56 92 04/25/17 20:30 Nasal Cannula 2.0 Intake and Output 04/25/17 04/25/17 04/26/17 15:00 23:00 07:00 Intake Total 525 ml 110 ml Output Total 800 ml Balance 525 ml -690 ml Exam Free Text/Dictation Dressing dry Incision clean, dry, and intact without redness or drainage Thigh soft 5/5 Quadriceps, Tibialis Anterior, EHL, Gastroc, Soleus, Peroneals Normal sensation Moderatel left leg swelling. Neg Herb's Palpable DT/PT, CR <2 sec No distal edema Results Result Diagram: 04/26/17 0602 04/26/17 0602 ANN-MARIE RIVAS PA-C Apr 26, 2017 12:18
[2017-04-26] MEDS: RIVAROXABAN 15 MG TABLET PO SCH ×2 (15:15→21:02)
[2017-04-26] MEDS: ATORVASTATIN 10 MG TAB PO SCH (21:01)
[2017-04-26] MEDS: ZOLPIDEM 5 MG TAB PO PRN (21:02)
[2017-04-26] MEDS: traMADol 50 MG TAB PO PRN (21:19)
[2017-04-27 05:00] LABS: ADD SCAN DIFF NO
[2017-04-27 05:04] LABS: BASOPHILS % 0.4 % (0.0-2.0); EOSINOPHILS # 0.1 10^3/ul (0.0-0.5); EOSINOPHILS % 1.9 % (0.0-7.0); HEMATOCRIT 29.5 % (37.0-47.0); HEMOGLOBIN 9.7 g/dl (12.0-16.0); LYMPHOCYTES # 0.9 10^3/ul (0.8-2.9); LYMPHOCYTES % 11.7 % (15.0-51.0); MEAN CORPUSCULAR HEMOGLOBIN 30.8 pg (29.0-33.0); MEAN CORPUSCULAR HGB CONC 32.9 g/dl (32.0-37.0); MEAN CORPUSCULAR VOLUME 93.7 fl (82.0-101.0); MEAN PLATELET VOLUME 9.5 fl (7.4-10.4); MONOCYTE # 0.7 10^3/ul (0.3-0.9); MONOCYTES % 9.6 % (0.0-11.0); NEUTROPHIL # 5.5 10^3/ul (1.6-7.5); PLATELET COUNT 274 10^3/UL (140-415); RED BLOOD COUNT 3.15 10^6/ul (4.20-5.40); RED CELL DISTRIBUTION WIDTH 13.3 % (11.5-14.5); WHITE BLOOD COUNT 7.3 10^3/ul (4.8-10.8)
[2017-04-27 05:36] LABS: IRON 16 ug/dl (35-150)
[2017-04-27 05:39] LABS: CALCIUM 7.9 mg/dl (8.4-10.2); CREATININE 0.6 mg/dl (0.44-1.00); PHOSPHORUS 2.4 mg/dl (2.5-4.9); POTASSIUM 3.7 mmol/L (3.5-5.1)
[2017-04-27 05:46] LABS: TOTAL IRON BINDING CAPACITY 183 ug/dl (241-421)
[2017-04-27] MEDS: PANTOPRAZOLE (EC) 40 MG TAB PO SCH ×2 (05:48→18:31)
[2017-04-27] MEDS: LEVOTHYROXINE 100 MCG TAB PO SCH (05:49)
[2017-04-27] MEDS: NACL 3% 500 ML IV SCH (06:49)
[2017-04-27 08:12] VITALS: BP 138/65; RESP 18
[2017-04-27] MEDS: DULOXETINE 30 MG CAP DR PO SCH (09:26)
[2017-04-27] MEDS: PREGABALIN 50 MG CAP PO SCH ×2 (09:27→20:56)
[2017-04-27] MEDS: ASCORBIC ACID 500 MG TAB PO SCH (09:27)
[2017-04-27] MEDS: DOCUSATE SODIUM 100 MG CAP PO SCH ×2 (09:27→20:56)
[2017-04-27] MEDS: LIOTHYRONINE 5 MCG TAB PO SCH (09:27)
[2017-04-27] MEDS: traMADol 50 MG TAB PO PRN ×3 (09:29→20:56)
--- NOTE | 2017-04-27 10:43 | PN ---
Date/Time of Note Date/Time of Note DATE: 04/27/17 TIME: 10:40 Assessment/Plan Lines/Catheters IV Catheter Type (from Nrsg): Peripheral IV Cook in Place (from Nrsg): No Assessment/Plan Assessment/Plan POD # 4. Stable. -Tramadol prn pain -Ice and elevate knee -Medical treatment for hyponatremia -OOB with PT -Xarelto 15 mg po bid Subjective 24 Hr Interval Summary Having some pain in left knee. Taking Tramadol, but feels if she takes stronger pain meds with anti-seizure meds, she gets "loopy." Also, venous doppler showed left popliteal vein DVT yesterday and started on Xarelto. Exam/Review of Systems Vital Signs Vitals Vital Signs Date Time Temp Pulse Resp B/P Pulse Ox O2 Delivery O2 Flow Rate FiO2 04/27/17 08:12 97.7 86 18 138/65 96 04/25/17 20:30 Nasal Cannula 2.0 Intake and Output 04/26/17 04/26/17 04/27/17 15:00 23:00 07:00 Intake Total 950 ml 240 ml Output Total 200 ml 300 ml Balance 750 ml -60 ml Exam Free Text/Dictation Dressing dry Incision clean, dry, and intact without redness or drainage, some soft tissue swelling 5/5 Tibialis Anterior, EHL, Gastroc Soleus, Peroneals Normal sensation Palpable DP/PT, CR < 2 Sec No distal edema Results Result Diagram: 04/27/17 0436 04/27/17 0436 FLORES LORENZ MD Apr 27, 2017 10:42
[2017-04-27] MEDS: RIVAROXABAN 15 MG TABLET PO SCH ×2 (13:18→20:55)
[2017-04-27] MEDS: OXCARBAZEPINE 300 MG TAB PO SCH ×2 (13:18→20:55)
--- NOTE | 2017-04-27 14:30 | CONS ---
Date/Time of Note Date/Time of Note DATE: 04/27/17 TIME: 14:27 Assessment/Plan Assessment/Plan Additional Assessment/Plan 1. S/P left knee replacement. pain managment per ortho 2. 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 monitor am labs 3. Confusion /: resolved. likley due to hyponatremia and narcotics. w/u otherwise negative 4. Swell left knee sec to "fall" yesterday, await ortho follow up 5. Anemia stable: repeat iron sats 6.DVT: on eliquis Consultation Date/Type/Reason Admit Date/Time Apr 23, 2017 at 06:57 Initial Consult Date 24 HR Interval Summary Free Text/Dictation continues to complain of swelling and pain of the left knww. requesting more pain meds. MS much better and back to normal Exam/Review of Systems Vital Signs Vitals Vital Signs Date Time Temp Pulse Resp B/P Pulse Ox O2 Delivery O2 Flow Rate FiO2 04/27/17 08:12 97.7 86 18 138/65 96 04/25/17 20:30 Nasal Cannula 2.0 Intake and Output 04/26/17 04/26/17 04/27/17 15:00 23:00 07:00 Intake Total 950 ml 240 ml Output Total 200 ml 300 ml Balance 750 ml -60 ml Exam Constitutional: alert, oriented, well developed Head: normocephalic Eyes: nl conjunctiva Neck: non-tender, supple Respiratory: clear to auscultation Cardiovascular: edema (left knee swollen, non tender/ dressing CD), regular rate and rhythm Gastrointestinal: non-tender, soft Results Result Diagram: 04/27/17 0436 04/27/17 0436 Results 24 hrs Laboratory Tests Test 04/27/17 04:24 04/27/17 04:36 Ferritin 107.0 White Blood Count 7.3 Red Blood Count 3.15 L Hemoglobin 9.7 L Hematocrit 29.5 L Mean Corpuscular Volume 93.7 Mean Corpuscular Hemoglobin 30.8 Mean Corpuscular Hemoglobin Concent 32.9 Red Cell Distribution Width 13.3 Platelet Count 274 Mean Platelet Volume 9.5 Neutrophils % 76.0 Lymphocytes % 11.7 L Monocytes % 9.6 Eosinophils % 1.9 Basophils % 0.4 Nucleated Red Blood Cells % 0.0 Neutrophils # 5.5 Lymphocytes # 0.9 Monocytes # 0.7 Eosinophils # 0.1 Basophils # 0.0 Nucleated Red Blood Cells # 0.0 Sodium Level 140 Potassium Level 3.7 Chloride Level 100 Carbon Dioxide Level 29 Anion Gap 15 Blood Urea Nitrogen 11 Creatinine 0.60 Glucose Level 82 Calcium Level 7.9 L Phosphorus Level 2.4 L Magnesium Level 2.0 Iron Level 16 L Total Iron Binding Capacity 183 L Percent Iron Saturation 9 L Medications Medications Current Medications Ascorbic Acid (Vitamin C) 500 mg DAILY PO Last administered on 04/27/17 09:27 ; Admin Dose 500 MG; Start 04/24/17 at 09:00 Atorvastatin Calcium (Lipitor) 10 mg QHS PO Last administered on 04/26/17 21: 01; Admin Dose 10 MG; Start 04/23/17 at 21:00 Carvedilol (Coreg) 6.25 mg BID PO Last administered on 04/27/17 09:28; Admin Dose 6.25 MG; Start 04/23/17 at 21:00 Duloxetine HCl (Cymbalta) 60 mg DAILY PO Last administered on 04/27/17 09:26; Admin Dose 60 MG; Start 04/24/17 at 09:00 Liothyronine Sodium (Cytomel) 5 mcg DAILY PO Last administered on 04/27/17 09: 27; Admin Dose 5 MCG; Start 04/24/17 at 09:00 Oxcarbazepine (Trileptal) 900 mg BID PO Last administered on 04/27/17 13:18; Admin Dose 900 MG; Start 04/23/17 at 21:00 Ondansetron HCl (Zofran Inj) 4 mg Q6H PRN IV NAUSEA AND/OR VOMITING; Start 08/30 at 12:30 Bisacodyl (Dulcolax Supp) 10 mg Q12H PRN [place] CONSTIPATION; Start 04/23/17 at 12: 30 Magnesium Hydroxide (Milk Of Mag) 30 ml BID PRN PO CONSTIPATION; Start at 12:30 Sodium Biphosphate/ Sodium Phosphate (Fleet Enema) 133 ml DAILY PRN [place] CONSTIPATION; Start 04/23/17 at 12:30 Docusate Sodium (Colace) 100 mg BID PO Last administered on 04/27/17 09:27; Admin Dose 100 MG; Start 04/23/17 at 21:00 Diphenhydramine HCl (Benadryl) 25 mg Q6H PRN PO PRURITUS; Start 04/23/17 at 12: 30 Pantoprazole (Protonix Tab) 40 mg BID@06,18 PO Last administered on 04/27/17 05:48; Admin Dose 40 MG; Start 04/23/17 at 18:00 Pregabalin (Lyrica) 50 mg BID PO Last administered on 04/27/17 09:27; Admin Dose 50 MG; Start 04/23/17 at 21:00 Phenol (Cepastat Lozenge) 1 lozenge Q1H PRN [place] SORE THROAT Last administered on 04/24/17 09:28; Admin Dose 1 LOZENGE; Start 04/24/17 at 09:30 Zolpidem Tartrate (Ambien) 5 mg HS PRN PO INSOMNIA Last administered on 21:02; Admin Dose 5 MG; Start 04/24/17 at 23:00 Rivaroxaban (Xarelto) 15 mg Q12 PO Last administered on 04/27/17 13:18; Admin Dose 15 MG; Start 04/26/17 at 13:00 Tramadol HCl (Ultram) 50 mg Q6 PRN PO PAIN Last administered on 04/27/17 09:29 ; Admin Dose 50 MG; Start 04/26/17 at 21:30 OSCAR CHURCH MD Apr 27, 2017 14:29
[2017-04-27 20:16] VITALS: BP 116/58; RESP 18
[2017-04-27] MEDS: ATORVASTATIN 10 MG TAB PO SCH (20:55)
[2017-04-28 05:57] LABS: ADD SCAN DIFF NO
[2017-04-28 06:02] LABS: BASOPHILS % 0.5 % (0.0-2.0); EOSINOPHILS # 0.2 10^3/ul (0.0-0.5); EOSINOPHILS % 3.1 % (0.0-7.0); HEMATOCRIT 29.3 % (37.0-47.0); HEMOGLOBIN 9.6 g/dl (12.0-16.0); LYMPHOCYTES # 1.4 10^3/ul (0.8-2.9); LYMPHOCYTES % 17.5 % (15.0-51.0); MEAN CORPUSCULAR HEMOGLOBIN 31.4 pg (29.0-33.0); MEAN CORPUSCULAR HGB CONC 32.8 g/dl (32.0-37.0); MEAN CORPUSCULAR VOLUME 95.8 fl (82.0-101.0); MEAN PLATELET VOLUME 9.2 fl (7.4-10.4); MONOCYTE # 0.8 10^3/ul (0.3-0.9); MONOCYTES % 9.9 % (0.0-11.0); NEUTROPHIL # 5.4 10^3/ul (1.6-7.5); NEUTROPHILS % 68.6 % (39.0-77.0); PLATELET COUNT 301 10^3/UL (140-415); RED BLOOD COUNT 3.06 10^6/ul (4.20-5.40); RED CELL DISTRIBUTION WIDTH 13.4 % (11.5-14.5); WHITE BLOOD COUNT 7.8 10^3/ul (4.8-10.8)
[2017-04-28] MEDS: PANTOPRAZOLE (EC) 40 MG TAB PO SCH ×2 (06:06→17:15)
[2017-04-28] MEDS: LEVOTHYROXINE 100 MCG TAB PO SCH (06:07)
[2017-04-28 06:19] LABS: ALBUMIN 3.2 g/dl (3.3-4.9); ALBUMIN/GLOBULIN RATIO 1.52; BILIRUBIN,INDIRECT 0.3 mg/dl (0-1.1); BILIRUBIN,TOTAL 0.3 mg/dl (0.2-1.3); CREATININE 0.61 mg/dl (0.44-1.00); PHOSPHORUS 2.6 mg/dl (2.5-4.9); POTASSIUM 3.6 mmol/L (3.5-5.1); TOTAL PROTEIN 5.3 g/dl (6.1-8.1)
[2017-04-28 06:53] LABS: FERRITIN 98.7 ng/ml (11.1-264.0)
[2017-04-28 07:22] LABS: IRON 25 ug/dl (35-150)
[2017-04-28 07:32] LABS: TOTAL IRON BINDING CAPACITY 181 ug/dl (241-421)
[2017-04-28 08:27] VITALS: BP 130/60; RESP 18
[2017-04-28] MEDS: ASCORBIC ACID 500 MG TAB PO SCH (08:28)
[2017-04-28] MEDS: RIVAROXABAN 15 MG TABLET PO SCH ×2 (08:28→20:35)
[2017-04-28] MEDS: DOCUSATE SODIUM 100 MG CAP PO SCH ×2 (08:28→20:35)
[2017-04-28] MEDS: OXCARBAZEPINE 300 MG TAB PO SCH ×2 (08:29→20:35)
[2017-04-28] MEDS: DULOXETINE 30 MG CAP DR PO SCH (08:30)
[2017-04-28] MEDS: LIOTHYRONINE 5 MCG TAB PO SCH (08:34)
[2017-04-28] MEDS: PREGABALIN 50 MG CAP PO SCH ×2 (08:34→20:35)
[2017-04-28] MEDS: traMADol 50 MG TAB PO PRN ×2 (09:17→15:58)
--- NOTE | 2017-04-28 10:41 | PN ---
Date/Time of Note Date/Time of Note DATE: 04/28/17 TIME: 10:40 Assessment/Plan Lines/Catheters IV Catheter Type (from Nrsg): Peripheral IV Cook in Place (from Nrsg): No Assessment/Plan Assessment/Plan POD # 5. Stable. -Pain meds -OOB with PT -Xarelto 15 mg po bid -Plan for d/c to home tomorrow Subjective 24 Hr Interval Summary Having some left knee pain. Tramadol helps. Has been OOB with PT. Exam/Review of Systems Vital Signs Vitals Vital Signs Date Time Temp Pulse Resp B/P Pulse Ox O2 Delivery O2 Flow Rate FiO2 04/28/17 08:27 97.9 89 18 130/60 93 04/25/17 20:30 Nasal Cannula 2.0 Intake and Output 04/27/17 04/27/17 04/28/17 15:00 23:00 07:00 Intake Total 3 ml 680 ml 350 ml Output Total 200 ml 600 ml Balance 3 ml 480 ml -250 ml Exam Free Text/Dictation Dressing dry Incision clean, dry, and intact without redness or drainage 5/5 Tibialis Anterior, EHL, Gastroc Soleus, Peroneals Normal sensation Palpable DP/PT, CR < 2 Sec No distal edema Results Result Diagram: 04/28/17 0442 04/28/17 0445 FLORES LORENZ MD Apr 28, 2017 10:41
--- NOTE | 2017-04-28 14:37 | CONS ---
Date/Time of Note Date/Time of Note DATE: 04/28/17 TIME: 14:34 Assessment/Plan Assessment/Plan Additional Assessment/Plan 1. S/P left knee replacement. pain managment per ortho/ tolerated tramadol. dw dr shady charles does not want her on narcotics. cont pt 2. SIADH, resolved and na stable off ivf 3. Confusion /: resolved. likley due to hyponatremia and narcotics. w/u otherwise negative 4. Swell left knee sec to "fall" yesterday,stable. cont pt 5. Anemia stable: 6.DVT: on eliquis Consultation Date/Type/Reason Admit Date/Time Apr 23, 2017 at 06:57 24 HR Interval Summary Free Text/Dictation still complaining of pain and swelling of her left knee. confusion has completely resolved Exam/Review of Systems Vital Signs Vitals Vital Signs Date Time Temp Pulse Resp B/P Pulse Ox O2 Delivery O2 Flow Rate FiO2 04/28/17 08:27 97.9 89 18 130/60 93 04/25/17 20:30 Nasal Cannula 2.0 Intake and Output 04/27/17 04/27/17 04/28/17 14:59 22:59 06:59 Intake Total 3 ml 680 ml 350 ml Output Total 200 ml 600 ml Balance 3 ml 480 ml -250 ml Exam Constitutional: alert, oriented Psych: no complaints Head: normocephalic Neck: non-tender, supple Respiratory: clear to auscultation Cardiovascular: edema, regular rate and rhythm Gastrointestinal: non-tender (left knee with stable edema/ knee pain), soft Results Result Diagram: 04/28/17 0442 04/28/17 0445 Results 24 hrs Laboratory Tests Test 04/28/17 04:42 04/28/17 04:45 White Blood Count 7.8 Red Blood Count 3.06 L Hemoglobin 9.6 L Hematocrit 29.3 L Mean Corpuscular Volume 95.8 Mean Corpuscular Hemoglobin 31.4 Mean Corpuscular Hemoglobin Concent 32.8 Red Cell Distribution Width 13.4 Platelet Count 301 Mean Platelet Volume 9.2 Neutrophils % 68.6 Lymphocytes % 17.5 Monocytes % 9.9 Eosinophils % 3.1 Basophils % 0.5 Nucleated Red Blood Cells % 0.0 Neutrophils # 5.4 Lymphocytes # 1.4 Monocytes # 0.8 Eosinophils # 0.2 Basophils # 0.0 Nucleated Red Blood Cells # 0.0 Iron Level 25 #L Total Iron Binding Capacity 181 L Percent Iron Saturation 14 L Sodium Level 139 Potassium Level 3.6 Chloride Level 97 Carbon Dioxide Level 29 Anion Gap 17 H Blood Urea Nitrogen 12 Creatinine 0.61 Glucose Level 87 Calcium Level 8.0 L Phosphorus Level 2.6 Ferritin 98.7 Total Bilirubin 0.3 Direct Bilirubin 0.00 Indirect Bilirubin 0.3 Aspartate Amino Transf (AST/SGOT) 36 Alanine Aminotransferase (ALT/SGPT) 30 Alkaline Phosphatase 70 Total Protein 5.3 L Albumin 3.2 L Globulin 2.10 Albumin/Globulin Ratio 1.52 Medications Medications Current Medications Ascorbic Acid (Vitamin C) 500 mg DAILY PO Last administered on 04/28/17 08:28 ; Admin Dose 500 MG; Start 04/24/17 at 09:00 Atorvastatin Calcium (Lipitor) 10 mg QHS PO Last administered on 04/27/17 20: 55; Admin Dose 10 MG; Start 04/23/17 at 21:00 Carvedilol (Coreg) 6.25 mg BID PO Last administered on 04/28/17 08:31; Admin Dose 6.25 MG; Start 04/23/17 at 21:00 Duloxetine HCl (Cymbalta) 60 mg DAILY PO Last administered on 04/28/17 08:30; Admin Dose 60 MG; Start 04/24/17 at 09:00 Liothyronine Sodium (Cytomel) 5 mcg DAILY PO Last administered on 04/28/17 08: 34; Admin Dose 5 MCG; Start 04/24/17 at 09:00 Oxcarbazepine (Trileptal) 900 mg BID PO Last administered on 04/28/17 08:29; Admin Dose 900 MG; Start 04/23/17 at 21:00 Ondansetron HCl (Zofran Inj) 4 mg Q6H PRN IV NAUSEA AND/OR VOMITING; Start 08/30 at 12:30 Bisacodyl (Dulcolax Supp) 10 mg Q12H PRN [place] CONSTIPATION; Start 04/23/17 at 12: 30 Magnesium Hydroxide (Milk Of Mag) 30 ml BID PRN PO CONSTIPATION; Start at 12:30 Sodium Biphosphate/ Sodium Phosphate (Fleet Enema) 133 ml DAILY PRN [place] CONSTIPATION; Start 04/23/17 at 12:30 Docusate Sodium (Colace) 100 mg BID PO Last administered on 04/28/17 08:28; Admin Dose 100 MG; Start 04/23/17 at 21:00 Diphenhydramine HCl (Benadryl) 25 mg Q6H PRN PO PRURITUS; Start 04/23/17 at 12: 30 Pantoprazole (Protonix Tab) 40 mg BID@06,18 PO Last administered on 04/28/17 06:06; Admin Dose 40 MG; Start 04/23/17 at 18:00 Pregabalin (Lyrica) 50 mg BID PO Last administered on 04/28/17 08:34; Admin Dose 50 MG; Start 04/23/17 at 21:00 Phenol (Cepastat Lozenge) 1 lozenge Q1H PRN [place] SORE THROAT Last administered on 04/24/17 09:28; Admin Dose 1 LOZENGE; Start 04/24/17 at 09:30 Zolpidem Tartrate (Ambien) 5 mg HS PRN PO INSOMNIA Last administered on 21:02; Admin Dose 5 MG; Start 04/24/17 at 23:00 Rivaroxaban (Xarelto) 15 mg Q12 PO Last administered on 04/28/17 08:28; Admin Dose 15 MG; Start 04/26/17 at 13:00 Tramadol HCl (Ultram) 50 mg Q6 PRN PO PAIN Last administered on 04/28/17 09:17 ; Admin Dose 50 MG; Start 04/26/17 at 21:30 OSCAR CHURCH MD Apr 28, 2017 14:36
[2017-04-28 19:30] VITALS: BP 109/53; RESP 18
[2017-04-28] MEDS: FERROUS SULFATE (EC) 325 MG TAB PO SCH (20:35)
[2017-04-28] MEDS: ATORVASTATIN 10 MG TAB PO SCH (20:35)
[2017-04-28] MEDS: ZOLPIDEM 5 MG TAB PO PRN (21:29)
[2017-04-29] MEDS: traMADol 50 MG TAB PO PRN ×2 (01:31→07:53)
[2017-04-29] MEDS: PANTOPRAZOLE (EC) 40 MG TAB PO SCH (05:10)
[2017-04-29] MEDS: LEVOTHYROXINE 100 MCG TAB PO SCH (05:12)
[2017-04-29 05:20] LABS: ADD SCAN DIFF NO
[2017-04-29 05:30] LABS: BASOPHILS % 0.5 % (0.0-2.0); EOSINOPHILS # 0.3 10^3/ul (0.0-0.5); EOSINOPHILS % 3.3 % (0.0-7.0); HEMATOCRIT 28.1 % (37.0-47.0); HEMOGLOBIN 9.3 g/dl (12.0-16.0); LYMPHOCYTES # 1.2 10^3/ul (0.8-2.9); LYMPHOCYTES % 14.2 % (15.0-51.0); MEAN CORPUSCULAR HEMOGLOBIN 31.1 pg (29.0-33.0); MEAN CORPUSCULAR HGB CONC 33.1 g/dl (32.0-37.0); MEAN PLATELET VOLUME 9.2 fl (7.4-10.4); MONOCYTE # 0.9 10^3/ul (0.3-0.9); MONOCYTES % 11.4 % (0.0-11.0); NEUTROPHIL # 5.7 10^3/ul (1.6-7.5); NEUTROPHILS % 70.2 % (39.0-77.0); PLATELET COUNT 338 10^3/UL (140-415); RED BLOOD COUNT 2.99 10^6/ul (4.20-5.40); RED CELL DISTRIBUTION WIDTH 13.5 % (11.5-14.5); WHITE BLOOD COUNT 8.2 10^3/ul (4.8-10.8)
[2017-04-29 06:00] LABS: ALBUMIN 3.2 g/dl (3.3-4.9); ALBUMIN/GLOBULIN RATIO 1.6; BILIRUBIN,INDIRECT 0.2 mg/dl (0-1.1); BILIRUBIN,TOTAL 0.2 mg/dl (0.2-1.3); CALCIUM 7.8 mg/dl (8.4-10.2); CREATININE 0.58 mg/dl (0.44-1.00); POTASSIUM 3.7 mmol/L (3.5-5.1); TOTAL PROTEIN 5.2 g/dl (6.1-8.1)
[2017-04-29] MEDS: PREGABALIN 50 MG CAP PO SCH (07:53)
[2017-04-29] MEDS ORDERED: RIVA15TA PO (08:04)
[2017-04-29 08:19] VITALS: BP 120/56; RESP 18
--- NOTE | 2017-04-29 08:46 | PN ---
Date/Time of Note Date/Time of Note DATE: 04/29/17 TIME: 08:45 Assessment/Plan Lines/Catheters IV Catheter Type (from Nrsg): Peripheral IV Cook in Place (from Nrsg): No Assessment/Plan Assessment/Plan Stable POD #6, s/p left TKA -pain meds as needed -Xarelto 15mg BID/SCDs -OOB with PT -dressing changed -discharge home today -follow up in the office on Saturday Subjective 24 Hr Interval Summary No acute overnight events. Having mild pain but progressing overall. VSS, afebrile. Stable for discharge home today. Exam/Review of Systems Vital Signs Vitals Vital Signs Date Time Temp Pulse Resp B/P Pulse Ox O2 Delivery O2 Flow Rate FiO2 04/29/17 08:19 98.5 88 18 120/56 95 04/25/17 20:30 Nasal Cannula 2.0 Intake and Output 04/28/17 04/28/17 04/29/17 15:00 23:00 07:00 Intake Total 700 ml 450 ml Output Total 900 ml Balance -200 ml 450 ml Exam Free Text/Dictation Dressing dry Incision clean, dry, and intact without redness or drainage Thigh soft 5/5 Quadriceps, Tibialis Anterior, EHL, Gastroc, Soleus, Peroneals Normal sensation Palpable DT/PT, CR <2 sec No distal edema Results Result Diagram: 04/29/17 0423 04/29/17 0423 ANN-MARIE RIVAS PA-C Apr 29, 2017 08:46
[2017-04-29] MEDS: ASCORBIC ACID 500 MG TAB PO SCH (09:53)
[2017-04-29] MEDS: LIOTHYRONINE 5 MCG TAB PO SCH (09:54)
[2017-04-29] MEDS: DULOXETINE 30 MG CAP DR PO SCH (09:54)
[2017-04-29] MEDS: DOCUSATE SODIUM 100 MG CAP PO SCH (09:54)
[2017-04-29] MEDS: FERROUS SULFATE (EC) 325 MG TAB PO SCH (09:54)
[2017-04-29] MEDS: RIVAROXABAN 15 MG TABLET PO SCH ×2 (09:55→14:39)
[2017-04-29] MEDS: OXCARBAZEPINE 300 MG TAB PO SCH (09:55)
--- NOTE | 2017-04-29 13:03 | DS ---
Date/Time of Note Date/Time of Note DATE: 04/29/17 TIME: 12:59 Discharge Summary Admission/Discharge Info Admit Date/Time Apr 23, 2017 at 06:57 Discharge Date/Time 04/29/2017 Discharge Diagnosis s/p left TKA Patient Condition: Good Procedures Left total knee arthroplasty Hospital Course This is a 72-year-old female, who was seen in the clinic initially complaining of left knee pain. X-rays demonstrated advanced osteoarthritis of the left knee and she has failed conservative treatment. It was thought she would benefit from a left total knee arthroplasty. On 04/23/2017 the patient was admitted and taken to the operating room where she underwent a left total knee arthroplasty. There were no intraoperative complications. The patient tolerated the procedure well. She was taken to recovery room in stable condition. She had a complicated postoperative course and did have some confusion secondary to the anesthesia and pain medication. She had a ground- level fall that did not result in any new or acute injuries or fractures. Additionally, she developed a postoperative DVT of the popliteal vein. She was switched from aspirin to Xarelto 15 mg twice daily. She was monitored very closely by the medicine team and ultimately deemed stable for discharge home on postoperative day 6. Prior to discharge, the incision was inspected and noted to be clean dry and intact. Dressing changes were done prior to patient going home. DISCHARGE INSTRUCTIONS: The patient will be discharged home in stable condition. She is to resume a normal diet. She is weightbearing as tolerated on left lower extremity. She will begin physical therapy with home health. She was discharged home with the medication noted and is to resume all of her normal home medication. She is to call the office or go to the emergency room for any concerns including increased redness, drainage, swelling, fever or any concerns regarding the operation or site of incision. Home Meds Reported Medications Cholecalciferol* (Vitamin D3*) 1,000 Unit Tablet, 2000 UNIT PO DAILY, TAB 04/23/17 Calcium Citrate* (Citracal*) 950 Mg Tab, 950 MG PO DAILY, TAB 04/23/17 Ascorbic Acid* (Vitamin C*) 500 Mg Capsule.sa, 500 MG PO DAILY, CAP 04/23/17 Multivitamins* (Theragran*) 1 Tab Tab, 1 TAB PO DAILY, TAB 04/23/17 Oxcarbazepine* (Oxcarbazepine*) 300 Mg Tablet, 900 MG PO BID, TAB 04/23/17 Carvedilol* (Carvedilol*) 6.25 Mg Tablet, 6.25 MG PO BID, #60 TAB 04/23/17 Atorvastatin Calcium (Atorvastatin Calcium) 10 Mg Tablet, 10 MG PO QHS, #30 TAB 04/23/17 Docusate Sodium* (Colace*) 100 Mg Capsule, 100 MG PO DAILY Y for CONSTIPATION, # 30 CAP 04/23/17 Polyethylene Glycol* (Miralax*) 17 Gm Powd.pack, 17 GM PO DAILY Y for CONSTIPATION, #30 PACKET 04/23/17 Duloxetine Hcl* (Cymbalta*) 60 Mg Capsule.dr, 60 MG PO DAILY, CAP 04/23/17 Trazodone Hcl* (Trazodone Hcl*) 50 Mg Tablet, 50 MG PO QHS, #30 TAB 04/23/17 Levothyroxine Sodium* (Levothyroxine Sodium*) 100 Mcg Tablet, 100 MCG PO BEFORE BREAKFAST, #30 TAB 04/23/17 Liothyronine Sodium* (Cytomel*) 5 Mcg Tablet, 5 MCG PO DAILY, TAB 04/23/17 Follow-up Plan The patient is to follow-up in the office on 05/03/2017 Primary Care Provider Matt Figueroa MD Pending Labs Laboratory Tests Test 04/29/17 04:23 White Blood Count 8.210^3/ul (4.8-10.8) Red Blood Count 2.9910^6/ul (4.20-5.40) Hemoglobin 9.3g/dl (12.0-16.0) Hematocrit 28.1% (37.0-47.0) Mean Corpuscular Volume 94.0fl (82.0-101.0) Mean Corpuscular Hemoglobin 31.1pg (29.0-33.0) Mean Corpuscular Hemoglobin Concent 33.1g/dl (32.0-37.0) Red Cell Distribution Width 13.5% (11.5-14.5) Platelet Count 48864^3/UL (140-415) Mean Platelet Volume 9.2fl (7.4-10.4) Neutrophils % 70.2% (39.0-77.0) Lymphocytes % 14.2% (15.0-51.0) Monocytes % 11.4% (0.0-11.0) Eosinophils % 3.3% (0.0-7.0) Basophils % 0.5% (0.0-2.0) Nucleated Red Blood Cells % 0.0/100WBC (0.0-0.0) Neutrophils # 5.710^3/ul (1.6-7.5) Lymphocytes # 1.210^3/ul (0.8-2.9) Monocytes # 0.910^3/ul (0.3-0.9) Eosinophils # 0.310^3/ul (0.0-0.5) Basophils # 0.010^3/ul (0.0-0.1) Nucleated Red Blood Cells # 0.010^3/ul (0.0-0.0) Sodium Level 138mmol/L (135-144) Potassium Level 3.7mmol/L (3.5-5.1) Chloride Level 98mmol/L (97-110) Carbon Dioxide Level 31mmol/L (21-31) Anion Gap 13 (8-16) Blood Urea Nitrogen 12mg/dl (7-20) Creatinine 0.58mg/dl (0.44-1.00) Glucose Level 113mg/dl (70-220) Calcium Level 7.8mg/dl (8.4-10.2) Total Bilirubin 0.2mg/dl (0.2-1.3) Direct Bilirubin 0.00mg/dl (0.00-0.20) Indirect Bilirubin 0.2mg/dl (0-1.1) Aspartate Amino Transf (AST/SGOT) 39IU/L (15-46) Alanine Aminotransferase (ALT/SGPT) 40IU/L (13-69) Alkaline Phosphatase 74IU/L (42-121) Total Protein 5.2g/dl (6.1-8.1) Albumin 3.2g/dl (3.3-4.9) Globulin 2.00g/dl (1.3-3.2) Albumin/Globulin Ratio 1.60 ANN-MARIE RIVAS PA-C Apr 29, 2017 13:02
--- NOTE | 2017-04-30 16:10 | OPR ---
DATE OF OPERATION: 04/23/2017 DATE: 04/23/2017 PREOPERATIVE DIAGNOSIS: Left knee osteoarthritis. POSTOPERATIVE DIAGNOSIS: Left knee osteoarthritis. OPERATION PERFORMED: Left total knee arthroplasty. SURGEON: Matt Figueroa MD LIFE ENRICHMENT ASSISTANT: Tj Gomez PA-C COMPONENTS USED: DePuy Attune size 6 narrow femoral component, size 4 tibial base plate, 6-mm polyethylene insert, and a 35 patellar button. ANESTHESIA: Spinal plus general endotracheal intubation, plus periarticular injection. ANESTHESIOLOGIST: Maritza Leary MD TOURNIQUET TIME: 52 minutes. ESTIMATED BLOOD LOSS: 50 mL INTRAVENOUS FLUIDS: 1800 mL crystalloid SPECIMENS: Bone and soft tissue. DRAINS: Hemovac x1. COMPLICATIONS: None. DISPOSITION: The patient tolerated the procedure well and was taken to the recovery room in stable condition. INDICATIONS: The patient is a 72-year-old woman who has had progressively worsening pain in the left knee with radiographs giving evidence of severe osteoarthritis. She has failed nonsurgical means of treatment to control her pain including activity modifications, pain medications, intraarticular injections, and ambulatory assistive devices. Despite these measures, she has had worsening pain. I felt she would benefit from a total knee arthroplasty. I felt the patient would benefit from a total knee arthroplasty. The risks, benefits, and alternatives of the procedure were explained in detail to the patient. I explained the risks of the surgery to include but not be limited to, bleeding and possible need for blood transfusion; infection; pain; stiffness; neurovascular injury with possible numbness, weakness, and/or paralysis anywhere from the knee down to the toes; fracture; instability; dislocation; wear and/or loosening of the prosthesis and possible need for future revision; blood clots; pulmonary embolism; and anesthetic complications such as heart attack, stroke, GI bleed, pneumonia, and/or . Ample time was allowed for the patient to ask questions, all of which were addressed and answered. The patient understood the risks involved and wished to proceed. Informed consent was signed prior to the procedure. PROCEDURE: The patient's left knee was initialed with a marking pen in the preoperative area to identify the correct operative site. The patient was brought to the operating room and transferred from the [facility] to the operating table where a spinal anesthetic was administered. The patient was then anesthetized and intubated. A Cook catheter was placed. A timeout was performed to confirm that the left leg was the correct operative site. The patient was given 2 g of Ancef within one hour prior to the procedure. A tourniquet was placed on the operative proximal thigh. The operative knee and lower extremity were prepped and draped in the usual sterile fashion. The operative lower extremity was elevated and exsanguinated with an Esmarch tourniquet. The proximal thigh tourniquet was inflated to 300 mmHg. The knee was flexed. A midline incision was made and carried down through the subcutaneous tissue and fat with sharp dissection. Limited medial and lateral flaps were raised. A median parapatellar approach was performed. Synovial fluid was normal in color and consistency. The patella was everted and the knee flexed. There were severe tricompartmental osteoarthritic changes noted. A medial release was performed at the joint line to the midcoronal plane. The ACL and PCL and remnants of the menisci were excised. The stepped drill was used to open up the femoral canal which was irrigated and sucked dry. The intramedullary guide [place] was passed up the femur, and the distal cutting block was pinned into place for a 5 degree valgus cut, taking 10 mm of bone off distally. The oscillating saw was used to make the cut. The tibia was subluxed anteriorly. The tibial cutoff jig was placed over the center of the talus distally and over the junction of the medial and middle third of the tibial tubercle proximally. The guide was pinned into place and the oscillating saw was used to make the cut. The tibia was sized. The extension gap was checked and accommodated a 6 mm spacer block with the knee in full extension. There was no varus or valgus instability. At this point, the femur was sized with the posterior referencing guide. Two holes were drilled in 3 degrees of external rotation. The two holes were in line with the transepicondylar axis, perpendicular to [place]'s line, and in line with the tibial cutoff jig brought up with the knee flexed 90 degrees and tensed with 2 lamina spreaders, suggesting the femoral rotation was correct. The four-in-one cutting block was pinned into place. The anterior and posterior cuts and chamfer cuts were made with the oscillating saw. The flexion gap was checked and accommodated the 6 mm spacer block at 90 degrees. There was no varus or valgus instability, suggesting the flexion and extension gaps were now equal. The central box was cut out on the femur. The tibia was drilled and punched in proper rotation. Trial components were placed into position with a trial insert. The patella was cut from 24 mm down to 15 mm and sized. Three holes were drilled and the trial button placed in position. With all the trials now in place, the knee was taken through range of motion and came to full extension as evidenced by the fact that with the foot on my abdomen and axial loading, there was no tendency for the knee to flex. The knee was able to be flexed to 125 degrees with good patellar tracking with no lateral tilt or subluxation. At this point, I was satisfied with the overall range of motion, stability, and patellar tracking. The trials were removed. The real components were opened. Two bags of cement were mixed, one with and one without premixed antibiotic. The knee was irrigated with antibiotic saline and sucked dry. Once the cement was in a doughy stage, the real components were cemented into place. The knee was held in full extension, and the patellar component was held with a patellar clamp. All excess cement was removed with curettes. As the cement was hardening, the synovial/capsular layer was infiltrated with a mixture of 150 mg of 0.5% Bupivacaine, 8 mg of Duramorph, 300 mcg of epinephrine, 30 mg of Toradol, 100 mcg of clonidine, 750 mg of cefuroxime and 86 mL of normal saline, followed by an injection of 266 mg of liposomal Bupivacaine. A Hemovac drain was placed in the deep portion of the wound and brought out the anterolateral thigh. Once the cement was completely hardened, the trial liner was removed, and the real insert was opened. The tourniquet was let down, and there was good hemostasis. The knee was then irrigated with a mixture of betadine/saline and then antibiotic saline with pulsatile lavage. The real insert was impacted into the tibia and reduced onto to the femur. The arthrotomy was closed with a few interrupted #1 Ethibond in a [id number] fashion, and then closed in a watertight fashion with a running #2 Stratafix suture. Knee flexion was checked against gravity and came to 125 degrees. The subcutaneous layer was irrigated and closed with 2-0 Statafix, and then 3-0 Vicryl and then vonnie on the skin. The wound was covered with an occlusive dressing, and secured with cast padding and a bias dressing. The drain was secured with 3-0 nylon. The sponge and needle counts were correct at the end of the case. The patient was then awakened, extubated, and taken to the recovery room in stable condition. Dictated By: Matt Figueroa MD /juana/amador /Document#: [id number]
== END 2017-04-29 15:25 | disposition home health service (06) | DRG 470 ==
LOC: REC 06:57 → MS1 14:37 → TEL 04-25 02:39 → MS1 04-26 16:26
PROVIDERS: ADMIT Orthopaedic Surgery; ATTEND Orthopaedic Surgery
PROC: 0SRD0J9 Replacement of Left Knee Joint with Synthetic Substitute, Cemented, Open Approach (ICD-10-PCS; principal; 2017-04-23 10:00)
DX: M17.12 Unilateral primary osteoarthritis, left knee (principal); E22.2 Syndrome of inappropriate secretion of antidiuretic hormone; E87.1 Hypo-osmolality and hyponatremia; G40.909 Epilepsy, unspecified, not intractable, without status epilepticus; D64.9 Anemia, unspecified; E83.39 Other disorders of phosphorus metabolism; I82.432 Acute embolism and thrombosis of left popliteal vein; F32.9 Major depressive disorder, single episode, unspecified; I10 Essential (primary) hypertension; T88.59XA Other complications of anesthesia, initial encounter
CPT/HCPCS: 70450; 73560; 80048; 80053; 81001; 82728; 83540; 83735; 84100; 84295; 84300; 84443; 84560; 85014; 85018; 85025; 86850; 86900; 86901; 86920; 87081; 87086; 88304; 88311; 93970; 97110; 97116; 97162; 97166; 97530; J1940; C1776; C9290; J0171; J0690; J0697; J0735; J1100; J1170; J1885; J2250; J2274; J2405; J3010; J3370; J3475; J7030; J7050; J7120

== ENCOUNTER → 2017-05-03 | Outpatient (CLI) | payer MEDICARE, OTHER ==
[~2017-05-03] MED LIST: ASCO500C7 PO; ASPI325T32 PO; ATOR10TA65 PO; CARV6.2579 PO; CHOL100062 PO; CITRACAL PO; DOCU-144 PO; DULO60CA6 PO; LEVO100T87 PO; LIOT5TAB3 PO; MULTI PO; OXCA300T41 PO; PANT40TA4 PO; POLY17PO6 PO; RIVA15TA PO; TRAM50TA2 PO; TRAZ50TA18 PO
--- NOTE | 2017-05-03 11:47 | PN ---
Date/Time of Note Date/Time of Note DATE: 05/03/17 TIME: 11:44 Assessment/Plan VTE Prophylaxis VTE Prophylaxis Intervention: ambulation, other Assessment/Plan Assessment/Plan ASSESSMENT: 10 days status post left total knee arthroplasty PLAN: She will continue Xarelto 15 mg twice daily for DVT prophylaxis for 2 additional weeks. We will switch her to 20 mg once daily at that point for a period of at least 3 months. We will also need to obtain some x-rays of her left knee at her next visit 2 weeks from today. She is to continue home health physical therapy. Additionally she is to continue using pain medication as needed. We will see her back for a range of motion check in 2 weeks. She is to call the office in the meantime if she has any concerns. Subjective 24 Hr Interval Summary Free Text/Dictation The patient presents today for her first postoperative evaluation on her left knee. She is 10 days status post left total knee arthroplasty. She is doing well overall. She is on Xarelto 15 mg twice daily for her left lower extremity DVT. She has been taking Fortescue and tramadol for pain. She denies any fevers or chills. She is doing physical therapy with home health. She presents today for her first postoperative evaluation. Exam/Review of Systems Exam On exam today, she is alert and oriented 4, and in no acute distress. She is ambulating with a front wheel walker. Exam of the incision demonstrates it to be clean, dry, and intact. There is some mild ecchymosis. Range of motion is 0 -75. She does have moderate soft tissue swelling of her left lower extremity, which is expected during the acute postoperative period and with a history of a DVT. Varus and valgus forces are stable. Compartments are otherwise soft. She is neurovascularly intact distally. ANN-MARIE RIVAS PA-C May 03, 2017 11:47
== END | disposition home or self-care (01) ==
LOC: HKI 10:41
PROVIDERS: ATTEND Orthopaedic Surgery
DX: Z47.1 Aftercare following joint replacement surgery (principal); Z96.652 Presence of left artificial knee joint

== ENCOUNTER → 2017-05-17 | Outpatient (CLI) | payer MEDICARE, OTHER | END | disposition home or self-care (01) | LOC: HKI 10:38 | PROVIDERS: ATTEND Orthopaedic Surgery | DX: Z47.1 Aftercare following joint replacement surgery (principal); M17.12 Unilateral primary osteoarthritis, left knee; Z96.652 Presence of left artificial knee joint | CPT/HCPCS: G0463 ==

== ENCOUNTER → 2017-06-07 | Outpatient (CLI) | payer MEDICARE, OTHER | END | disposition home or self-care (01) | LOC: HKI 10:17 | PROVIDERS: ATTEND Orthopaedic Surgery | DX: M17.12 Unilateral primary osteoarthritis, left knee (principal); M25.662 Stiffness of left knee, not elsewhere classified; Z09 Encounter for follow-up examination after completed treatment for conditions other than malignant neoplasm; Z96.652 Presence of left artificial knee joint | CPT/HCPCS: G0463 ==